=== PATIENT | female | born 1955 | race Caucasian/White ===

== ENCOUNTER 2021-05-22 15:47 | Emergency (ER) | payer MEDICARE ==
[~2021-05-22] VITALS: Ht 172.7 cm; Wt 60.0 kg
[2021-05-22 16:17] LABS: HEMATOCRIT 38.7 % (37.0-47.0); HEMOGLOBIN 13.5 g/dl (12.0-16.0); IMMATURE GRANULOCYTES 0.9 % (0.0-5.0); MEAN CORPUSCULAR HGB 27.6 pG CALC (26.0-32.0); MEAN CORPUSCULAR HGB CONC 34.9 g/dL CAL (32.0-36.0); NEUT# 14.77 thou/uL (2.00-7.15); RED BLOOD COUNT 4.9 mill/uL (4.20-5.60); RED CELL DISTRI WIDTH 17.6 % (11.5-15.5)
[2021-05-22 16:47] LABS: ALBUMIN 2.4 g/dL (3.2-5.0); BILIRUBIN, TOTAL 5.6 mg/dL (0.0-1.4); BUN 46 mg/dL (8-23); BUN/CREATININE RATIO 77 (12-20 (CALC)); CARBON DIOXIDE 20 mmol/l (22-30); CHLORIDE 86 mmol/l (95-108); CREATININE 0.6 mg/dL (0.5-1.0); GFR > 60 ML/MIN (>=60 (CALC)); GFR FOR AFR.AMER. > 60 ML/MIN (>=60 (CALC)); SGOT/AST 621 u/l (9-36); TOTAL PROTEIN 5.8 g/dL (6.3-8.2)
[2021-05-22 16:56] LABS: ANION GAP 15 (6-22 (CALC)); POTASSIUM 5.9 mmol/l (3.5-5.1); SODIUM 115 mmol/l (137-146)
[2021-05-22 16:57] LABS: ALKALINE PHOSPHATASE > 3000 u/l (38-126)
[2021-05-22 17:21] LABS: PROTHROMBIN TIME 10.1 SECONDS (9.0-12.5)
[2021-05-22 19:34] VITALS: BP 106/59
== END 2021-05-22 19:30 ==
LOC: ED 15:47
PROVIDERS: Physician Assistant Surgical
DX: R10.84 Generalized abdominal pain (principal); E87.5 Hyperkalemia; Z85.9 Personal history of malignant neoplasm, unspecified; Z20.822 Contact with and (suspected) exposure to COVID-19
CPT/HCPCS: Q9967